=== PATIENT | female | born 1995 | race Caucasian/White ===

== ENCOUNTER 2017-12-12 22:00 | Emergency (ER) | payer OTHER ==
[2017-12-12 22:20] VITALS: BP 132/63; PULSE 79; TEMP 98.8; BMI 27.2
[2017-12-13] MEDS ORDERED: IBUPROFEN 600 MG TABLET (FP) PO ONE ×2 (00:27→00:36)
[2017-12-13] MEDS ORDERED: CEPHALEXIN MONOHYDRATE 500 MG CAPSULE (UD) PO ONE (00:37)
--- NOTE | 2017-12-13 00:37 | PDOC ---
History of Present Illness - General Chief Complaint: Pain Stated Complaint: PAIN Time Seen by Provider: 12/12/17 23:58 History Source: Patient - History of Present Illness Initial Comments: 12/13/17 00:37 22 byear old c/o left great toe pain, reports that she pulled corner of a nail noted to have increased erythema and swelling to left great toe 12/13/17 00:48 Past History - Past Medical History Allergies/Adverse Reactions: Allergies Allergy/AdvReac Type Severity Reaction Status Date / Time No Known Allergies Allergy Verified 12/12/17 22:20 Home Medications: Ambulatory Orders Cephalexin Monohydrate [Keflex -] 250 mg PO Q6H #28 capsule 12/13/17 Asthma: No Cancer: No Cardiac Disorders: No COPD: No Diabetes: No HTN: No Seizures: No Thyroid Disease: No - Immunization History Immunization Up to Date: No - Suicide/Smoking/Psychosocial Hx Smoking Status: No Smoking History: Never smoked Have you smoked in the past 12 months: No Number of Cigarettes Smoked Daily: 0 Information on smoking cessation initiated: No Hx Alcohol Use: No Drug/Substance Use Hx: No Substance Use Type: None Hx Substance Use Treatment: No *Physical Exam - Vital Signs Last Vital Signs Temp Pulse Resp BP Pulse Ox 98.8 F 79 17 132/63 100 12/12/17 22:18 12/12/17 22:18 12/12/17 22:18 12/12/17 22:18 12/12/17 22:18 - Physical Exam General Appearance: Yes: Appropriately Dressed Extremity: positive: Normal Capillary Refill, Normal Inspection, Erythema ( right great toe erythema + tenderness, scant amount of pus drained. ) Integumentary: positive: Normal Color, Dry, Warm Neurologic: positive: Fully Oriented, Alert, Normal Mood/Affect Procedures - Incision and Drainage I&D Site: Left: Paronychia, Other (great toe (left)) Betadine cleansed: Yes Progress: 12/13/17 00:49 Small amount of yellow pus drained. Medical Decision Making - Medical Decision Making 12/13/17 00:49 paronychia P: drained scant amount of pus *DC/Admit/Observation/Transfer Diagnosis at time of Disposition: Paronychia of great toe, left - Discharge Dispostion Disposition: HOME - Prescriptions Prescriptions: Cephalexin Monohydrate [Keflex -] 250 mg PO Q6H #28 capsule - Referrals - Patient Instructions Printed Discharge Instructions: DI for Wound Infection Additional Instructions: Soak foot in warm salty water Take ibuprofen every 6 hours as needed for pain Take cephalexin as prescribed Follow up with you doctor in 2 days for a wound check Return to the ER if you're noticing streaking to your toes, fever, worsening symptoms. - Post Discharge Activity Forms/Work/School Notes: Back to Work
[2017-12-13] MEDS ORDERED: CEPHALEXIN MONOHYDRATE 500 MG CAPSULE (UD) ONE (00:46)
== END 2017-12-13 01:10 | disposition home or self-care (01) ==
LOC: JER 22:00 → JERFT 22:00 → JER 12-13 01:10
PROC: 0H9RXZZ Drainage of Toe Nail, External Approach (ICD-10-PCS; principal; 2017-12-12)
DX: L03.032 Cellulitis of left toe (principal)
CPT/HCPCS: 11740; 99281-25

== ENCOUNTER 2018-03-16 19:18 | Emergency (ER) | payer OTHER ==
[2018-03-16 19:47] VITALS: BP 99/83; PULSE 115; TEMP 98.6; BMI 28.6
[2018-03-16] MEDS ORDERED: IBUPROFEN 600 MG TABLET (FP) PO ONE ×2 (20:11→20:15)
--- NOTE | 2018-03-16 20:13 | PDOC ---
History of Present Illness - General Chief Complaint: Cold Symptoms Stated Complaint: COUGH Time Seen by Provider: 03/16/18 19:44 History Source: Patient Exam Limitations: No Limitations - History of Present Illness Initial Comments: 03/16/18 20:11 23-year-old female with no past medical history except for smoking presents to ED with complaints of myalgia, rib pain dry hacking cough and runny nose for the past 6 days. Patient states this taken Mucinex and takes with minimal improvement. Patient denies recent illness recent travel recent sick contacts. Timing/Duration: reports: week Possible Cause: Yes: no prior episodes Associated Symptoms: reports: cough, muscle aches, nasal drainage Past History - Travel Traveled outside of the country in the last 30 days: No - Past Medical History Allergies/Adverse Reactions: Allergies Allergy/AdvReac Type Severity Reaction Status Date / Time No Known Allergies Allergy Verified 12/12/17 22:20 Home Medications: Ambulatory Orders Guaifenesin AC [Robitussin AC -] 5 ml PO TID PRN #60 ml MDD 15 03/16/18 Asthma: No Cancer: No Cardiac Disorders: No COPD: No Diabetes: No HTN: No Seizures: No Thyroid Disease: No - Immunization History Immunization Up to Date: No - Suicide/Smoking/Psychosocial Hx Smoking Status: No Smoking History: Current every day smoker Have you smoked in the past 12 months: Yes Number of Cigarettes Smoked Daily: 3 Information on smoking cessation initiated: No Hx Alcohol Use: No Drug/Substance Use Hx: No Substance Use Type: None Hx Substance Use Treatment: No Patient Lives Alone: No Lives with/in: spouse/SO Review of Systems - Review of Systems Able to Perform ROS?: No HEENTM: Yes: Nose Congestion Respiratory: Yes: Cough Cardiac (ROS): No: Symptoms Reported Musculoskeletal: Yes: Joint Pain (rib pain) Integumentary: No: Symptoms Reported Neurological: No: Symptoms reported Endocrine: No: Symptoms Reported Hematologic/Lymphatic: No: Symptoms Reported *Physical Exam - Vital Signs Last Vital Signs Temp Pulse Resp BP Pulse Ox 98.6 F 115 H 18 99/83 99 03/16/18 19:44 03/16/18 19:44 03/16/18 19:44 03/16/18 19:44 03/16/18 19:44 - Physical Exam General Appearance: Yes: Nourished, Appropriately Dressed. No: Apparent Distress HEENT: positive: EOMI, WALTER, TMs Normal, Pharynx Normal, Nasal Congestion, Rhinorrhea. negative: Pale Conjunctivae, Sinus Tenderness Neck: positive: Supple Respiratory/Chest: positive: Lungs Clear, Normal Breath Sounds. negative: Respiratory Distress, Accessory Muscle Use Cardiovascular: positive: Regular Rhythm, Tachycardia. negative: Murmur Gastrointestinal/Abdominal: positive: Soft. negative: Tenderness Integumentary: positive: Normal Color, Warm, Moist Neurologic: positive: Motor Strength /5 Medical Decision Making - Medical Decision Making 03/16/18 20:13 Patient with URI symptoms. Patient slightly tachycardic complaining of myalgia. Patient ordered for Motrin and influenza. *DC/Admit/Observation/Transfer Diagnosis at time of Disposition: Cough - Discharge Dispostion Disposition: HOME Condition at time of disposition: Improved - Prescriptions Prescriptions: Guaifenesin AC [Robitussin AC -] 5 ml PO TID PRN #60 ml MDD 15 PRN Reason: Cough - Referrals - Patient Instructions Printed Discharge Instructions: DI for Viral Upper Respiratory Infection -- Adult Additional Instructions: Drink plenty of fluids and take Robitussin-AC as needed for discomfort but do not operate any heavy machinery taking it - Post Discharge Activity Forms/Work/School Notes: Back to Work
[2018-03-16] MEDS ORDERED: guaiFENesin/CODEINE 5 ML UNIT-DOSE CUPS PO ONE ×4 (20:40→20:59)
== END 2018-03-16 21:28 | disposition home or self-care (01) ==
LOC: JERFT 19:18
DX: J06.9 Acute upper respiratory infection, unspecified (principal); B97.89 Other viral agents as the cause of diseases classified elsewhere
CPT/HCPCS: 87804; 99281-25

== ENCOUNTER 2019-02-01 07:17 | Emergency (ER) | payer OTHER ==
[2019-02-01 07:39] VITALS: BMI 29.2
[2019-02-01] MEDS ORDERED: ACETAMINOPHEN 1000 MG/100 ML VIAL (NON FORMULARY) IVPB ONE (07:56)
[2019-02-01] MEDS ORDERED: ONDANSETRON 4 MG/2 ML VIAL IVPUSH ONE (07:56)
[2019-02-01] MEDS ORDERED: FAMOTIDINE 20 MG/50 ML IVPB 20 MG/50 ML MG IVPB ONE ×2 (07:56→07:59)
[2019-02-01] MEDS ORDERED: ACETAMINOPHEN INJECTION 100 ML IVPB ONE (07:59)
[2019-02-01] MEDS ORDERED: ONDANSETRON 4 MG/2 ML VIAL ONE (07:59)
[2019-02-01] MEDS ORDERED: SODIUM CHLORIDE 0.9% 1000 ML INFUS.BAG IV ONE ×2 (08:22→10:11)
--- NOTE | 2019-02-01 08:22 | PDOC ---
History of Present Illness - General Chief Complaint: Vomiting/Diarrhea Stated Complaint: VOMITING,DIARRHEA Time Seen by Provider: 02/01/19 07:37 - History of Present Illness Initial Comments: 02/01/19 11:54 23 years old with no significant past medical history presents to the emergency department with a history of nausea vomiting diarrhea greater than 10 episodes of nonbilious nonbloody emesis. Patient states she thinks she ate some bad [place] food After having multiple episodes of emesis patient began to develop some intermittent epigastric discomfort which comes and goes No travel no sick contacts no blood in emesis or diarrhea. Pain is intermittent moderate to severe in nature and nonradiating located in the epigastrium. Past History - Past Medical History Allergies/Adverse Reactions: Allergies Allergy/AdvReac Type Severity Reaction Status Date / Time No Known Allergies Allergy Verified 02/01/19 07:30 Home Medications: Ambulatory Orders Esomeprazole Magnesium [Nexium] 2.5 mg PO DAILY 02/01/19 Asthma: No Cancer: No Cardiac Disorders: No COPD: No Diabetes: No HTN: No Seizures: No Thyroid Disease: No - Immunization History Immunization Up to Date: No - Suicide/Smoking/Psychosocial Hx Smoking Status: No Smoking History: Current every day smoker Have you smoked in the past 12 months: Yes Number of Cigarettes Smoked Daily: 3 Information on smoking cessation initiated: No Hx Alcohol Use: No Drug/Substance Use Hx: No Substance Use Type: None Hx Substance Use Treatment: No Review of Systems - Review of Systems Comments:: 02/01/19 11:54 ROS: A complete review of 10 out of 10 review of systems is taken and is negative apart from what is previously mentioned below and in the HPI. *Physical Exam - Vital Signs Last Vital Signs Temp Pulse Resp BP Pulse Ox 98.5 F 117 H 18 102/72 99 02/01/19 07:31 02/01/19 07:31 02/01/19 07:31 02/01/19 07:31 02/01/19 07:51 - Physical Exam Comments: 02/01/19 11:55 Vitals: Triage Vital signs reviewed General Appearance: no acute distress, well nourished well developed, Head: Atraumatic, Neck: Supple;No Nucal rigidity Chest Wall: Nontender Cardiac: Regular rate and rhythym, no murmurs, no rubs, no gallops, Lungs: Clear to auscultation bilateral, good air movement bilaterally, Abdomen: Soft, non distended, normal bowel sounds, mild epigastric tenderness palpation, no rebound no guarding. Extremities: Full range of motion to all extremities, no cyanosis, clubbing, or edema Skin: Warm and dry, no rashes or lesions, no rash, no petechiae Psych: normal mood, normal affect ED Treatment Course - LABORATORY CBC & Chemistry Diagram: 02/01/19 08:10 02/01/19 08:10 - Medications Given in the ED: ED Medications Discontinued Medications Generic Name Dose Route Start Last Admin Trade Name Yvette PRN Reason Stop Dose Admin Acetaminophen 1,000 mg 02/01/19 07:56 02/01/19 08:19 Ofirmev Injection - IVPB 02/01/19 07:57 1,000 mg ONCE ONE Administration Ondansetron HCl 8 mg 02/01/19 07:56 02/01/19 08:19 Zofran Injection IVPUSH 02/01/19 07:57 8 mg ONCE ONE Administration Medical Decision Making - Medical Decision Making 02/01/19 11:56 23 years old with nausea vomiting diarrhea follow-up abdominal discomfort differential diagnosis includes food borne illness versus viral illness less likely acute surgical process very minimal epigastric tenderness on examination will hydrate check labs and reassess Reevaluation after IV fluids and antiemetics patient feels much better now tolerating fluids for abdominal/epigastric discomfort is completely resolved her laboratory analysis was unremarkable except for very slightly elevated white blood cell count which is most likely reactive or viral in nature We'll discharge home with prescription for Zofran Findings, need follow-up and strict return instructions discussed with patient. *DC/Admit/Observation/Transfer Diagnosis at time of Disposition: Gastroenteritis - Discharge Dispostion Disposition: HOME Decision to Admit order: No - Referrals - Patient Instructions Printed Discharge Instructions: Viral Gastroenteritis Additional Instructions: For the next 24 hours fluids only. Take Zofran antinausea medication as prescribed. Turn to the emergency department for any severe abdominal pain inability to tolerate fluids or for any concerns. Follow-up with your doctor within the next 1 week. - Post Discharge Activity Forms/Work/School Notes: Back to Work
[2019-02-01 08:42] LABS: BASO % 0.2 % (0-2.0); EOS % 0.2 % (0-4.5); HEMATOCRIT 39.1 % (32.4-45.2); HEMOGLOBIN 13.7 GM/dL (10.7-15.3); LYMPH % 5.5 % (8-40); MCH 30.9 pg (25.7-33.7); MCHC 34.9 g/dl (32.0-36.0); MEAN CELL VOLUME 88.6 fl (80-96); MONO % 8.4 % (3.8-10.2); NEUT % 85.7 % (42.8-82.8); PLATELET COUNT 193 K/MM3 (134-434); RBC 4.42 M/mm3 (3.60-5.2); WHITE BLOOD COUNT 11.7 K/mm3 (4.0-10.0)
[2019-02-01 08:46] LABS: EPI CELLS 11.4 /HPF (0-5/HPF); HYALINE CASTS 9 /lpf (0-8); URINE APPEARANCE CLOUDY; URINE BACTERIA 328.2 /hpf (NEGATIVE); URINE BILIRUBIN NEGATIVE (NEGATIVE); URINE COLOR YELLOW; URINE GLUCOSE (UA) NEGATIVE (NEGATIVE); URINE KETONE NEGATIVE (NEGATIVE); URINE LEUK ESTERASE TRACE (NEGATIVE); URINE NITRITE NEGATIVE (NEGATIVE); URINE PROTEIN NEGATIVE (NEGATIVE); URINE RBC 3 /hpf (0-4); URINE UROBILINOGEN 0.2 mg/dL (0.2-1.0); URINE WBC 5 /hpf (0-5)
[2019-02-01 09:08] LABS: ALBUMIN 3.8 g/dl (3.4-5.0); BILIRUBIN,TOTAL 0.5 mg/dL (0.2-1); BLOOD UREA NITROGEN 11.6 mg/dL (7-18); CALCIUM 8.8 mg/dL (8.5-10.1); CREATININE 0.6 mg/dL (0.55-1.3); POTASSIUM 3.9 mmol/L (3.5-5.1); TOT PROT 7.4 g/dl (6.4-8.2)
[2019-02-01] MEDS ORDERED: METOCLOPRAMIDE HCL INJECTION 10 MG/2 ML VIAL IVPB ONE (10:10)
[2019-02-01] MEDS ORDERED: METOCLOPRAMIDE HCL INJECTION 10 MG/2 ML VIAL ONE (10:13)
[2019-02-01 11:23] VITALS: BP 107/58; PULSE 100; TEMP 98.1
== END 2019-02-01 12:13 | disposition home or self-care (01) ==
LOC: JER 07:17
PROC: 3E033GC Introduction of Other Therapeutic Substance into Peripheral Vein, Percutaneous Approach (ICD-10-PCS; principal; 2019-02-01)
PROC: 3E033GC Introduction of Other Therapeutic Substance into Peripheral Vein, Percutaneous Approach (ICD-10-PCS; 2019-02-01)
PROC: 3E033NZ Introduction of Analgesics, Hypnotics, Sedatives into Peripheral Vein, Percutaneous Approach (ICD-10-PCS; 2019-02-01)
PROC: 3E033GC Introduction of Other Therapeutic Substance into Peripheral Vein, Percutaneous Approach (ICD-10-PCS; 2019-02-01)
PROC: 3E0337Z Introduction of Electrolytic and Water Balance Substance into Peripheral Vein, Percutaneous Approach (ICD-10-PCS; 2019-02-01)
DX: K52.9 Noninfective gastroenteritis and colitis, unspecified (principal)
CPT/HCPCS: 36415; 80053; 81003; 83690; 84703; 85025; 87086; 99284-25; J0131; J7030

== ENCOUNTER 2019-05-14 15:44 | Emergency (ER) | payer OTHER ==
[2019-05-14 16:00] VITALS: BP 104/72; PULSE 122; TEMP 98.1; BMI 28.3
--- NOTE | 2019-05-14 16:03 | PDOC ---
Rapid Medical Evaluation Time Seen by Provider: 05/14/19 15:59 Medical Evaluation: Allergies Allergy/AdvReac Type Severity Reaction Status Date / Time No Known Allergies Allergy Verified 02/01/19 07:30 05/14/19 15:59 Pt presents for evaluation of LLQ pain for two weeks. Pt states that the pain comes and goes, but the pain ramped up yesterday. Denies fevers, chills, urinary symptoms, n/v/d. LMP 2 weeks ago Exam: TTP LLQ Orders: labs, urine Pt to proceed to the ER for further evaluation Discharge Disposition - Diagnosis Abdominal pain Qualifiers: Abdominal location: left lower quadrant Qualified Code(s): R10.32 - Left lower quadrant pain - Referrals - Patient Instructions - Post Discharge Activity
== END 2019-05-14 16:38 | disposition left against medical advice (07) ==
LOC: JER 15:44
DX: R10.32 Left lower quadrant pain (principal)
CPT/HCPCS: 99281-25

== ENCOUNTER 2019-05-14 18:18 | Emergency (ER) | payer OTHER ==
[2019-05-14 18:52] VITALS: TEMP 98.5; BMI 66.7
--- NOTE | 2019-05-14 19:13 | PDOC ---
Attending Attestation - Resident Resident Name: Hayden Mcfarland - ED Attending Attestation I have performed the following: I have examined & evaluated the patient, The case was reviewed & discussed with the resident, I agree w/resident's findings & plan - HPI HPI: 05/14/19 19:55 see resident hpi - Physicial Exam PE: 05/14/19 19:55 agree with resident exam - Medical Decision Making 05/14/19 19:56 24-year-old female with complaints of left-sided pelvic pain as well as nonacute intermittent chest pain Plan for ultrasound of the pelvis to rule out torsion versus ectopic In regards to chest pain plan for cardiac enzymes, d-dimer EKG on arrival at approximately 4 PM was a sinus tachycardia Will CTA versus chest x-ray pending results
--- NOTE | 2019-05-14 19:45 | PDOC ---
History of Present Illness - General Chief Complaint: Pain Stated Complaint: ABDOMINAL PAIN Time Seen by Provider: 05/14/19 18:52 - History of Present Illness Initial Comments: 05/14/19 19:45 24F with no pmh presenting with LLQ pelvic pain since this morning. Pain is on/ off but 04/12 when is happens. Doesn't radiate anywhere, patient tearful. Also complains since Tuesday of substernal chest pain, worse upon inspiration. No fever, chills, nausea, vomiting, dysuria or vaginal discharge. No recent surgery, no recent travel, not on any control. LMP: 2 weeks ago. Unknown if she's of not. Past History - Past Medical History Allergies/Adverse Reactions: Allergies Allergy/AdvReac Type Severity Reaction Status Date / Time No Known Allergies Allergy Verified 05/14/19 16:01 Asthma: No Cancer: No Cardiac Disorders: No COPD: No Diabetes: No HTN: No Seizures: No Thyroid Disease: No - Immunization History Immunization Up to Date: No - Psycho Social/Smoking Cessation Hx Smoking Status: No Smoking History: Current every day smoker Have you smoked in the past 12 months: Yes Number of Cigarettes Smoked Daily: 4 Information on smoking cessation initiated: No Hx Alcohol Use: Yes (occassional) Drug/Substance Use Hx: Yes ([place] daily) Substance Use Type: None Hx Substance Use Treatment: No Review of Systems - Review of Systems Able to Perform ROS?: Yes Is the patient limited [place] proficient: No Constitutional: No: Symptoms Reported HEENTM: No: Symptoms Reported Respiratory: No: Symptoms reported Cardiac (ROS): Yes: See HPI ABD/GI: No: Symptoms Reported : Yes: See HPI Musculoskeletal: No: Symptoms Reported Integumentary: No: Symptoms Reported Neurological: No: Symptoms reported All Other Systems: Reviewed and Negative *Physical Exam - Vital Signs Last Vital Signs Temp Pulse Resp BP Pulse Ox 98.5 F 121 H 18 108/82 100 05/14/19 18:20 05/14/19 18:20 05/14/19 18:20 05/14/19 18:20 05/14/19 18:20 - Physical Exam General Appearance: Yes: Nourished, Appropriately Dressed. No: Apparent Distress HEENT: positive: EOMI, WALTER, Normal ENT Inspection Respiratory/Chest: positive: Lungs Clear, Normal Breath Sounds. negative: Chest Tender, Respiratory Distress Cardiovascular: positive: Tachycardia Female Pelvic Exam: positive: normal external exam, cervical os closed, discharge (white), adnexal tenderness (Left side) Gastrointestinal/Abdominal: positive: Normal Bowel Sounds, Flat, Soft. negative : Tender Musculoskeletal: positive: Normal Inspection. negative: CVA Tenderness Extremity: positive: Normal Capillary Refill, Normal Inspection, Normal Range of Motion Integumentary: positive: Normal Color, Dry, Warm Neurologic: positive: Fully Oriented, Alert, Normal Response. negative: Normal Mood/Affect (tearful) ED Treatment Course - LABORATORY CBC & Chemistry Diagram: 05/14/19 20:59 05/14/19 20:59 Medical Decision Making - Medical Decision Making 05/14/19 20:09 24F with no pmh presenting with LLQ pelvic pain since this morning. Pain is on/ off but 10/10 when is happens. Doesn't radiate anywhere, patient tearful. Also complains since Tuesday of substernal chest pain, worse upon inspiration. Ovarian torsion vs ectopic vs TOA Pelvic exams concerning as patient is tender in the left adnexa. Will get UA, basic labs test and send to [facility]. 05/14/19 23:53 [facility]: negative for ectopic preg and ovarian torsion. Elevated D-diner. CTA chest and ct abdomen/pelvis w/contrast pending. Patient signed out to Dr. Roque Discharge - Discharge Information Problems reviewed: Yes Clinical Impression/Diagnosis: Abdominal pain - Follow up/Referral Referrals: Colby Billingsley [Primary Care Provider] - - Patient Discharge Instructions - Post Discharge Activity
[2019-05-14] MEDS ORDERED: morphine CARPU-JECT 4 MG/1 ML DISP.SYRIN IVPUSH ONE (19:50)
[2019-05-14] MEDS ORDERED: morphine SULFATE 4 MG/ML VIAL ONE (19:55)
[2019-05-14 20:20] LABS: URINE APPEARANCE CLEAR; URINE BILIRUBIN NEGATIVE (NEGATIVE); URINE COLOR YELLOW; URINE GLUCOSE (UA) NEGATIVE (NEGATIVE); URINE KETONE NEGATIVE (NEGATIVE); URINE LEUK ESTERASE NEGATIVE (NEGATIVE); URINE NITRITE NEGATIVE (NEGATIVE); URINE PROTEIN NEGATIVE (NEGATIVE)
[2019-05-14 21:12] LABS: BASO % 0.4 % (0-2.0); EOS % 0.5 % (0-4.5); HEMATOCRIT 38.7 % (32.4-45.2); HEMOGLOBIN 13.2 GM/dL (10.7-15.3); LYMPH % 15.8 % (8-40); MCH 30.5 pg (25.7-33.7); MCHC 34.2 g/dl (32.0-36.0); MEAN CELL VOLUME 89.3 fl (80-96); MEAN PLT VOLUME 8.6 fl (7.5-11.1); MONO % 10.5 % (3.8-10.2); NEUT % 72.8 % (42.8-82.8); PLATELET COUNT 172 K/MM3 (134-434); RBC 4.34 M/mm3 (3.60-5.2); WHITE BLOOD COUNT 8.2 K/mm3 (4.0-10.0)
[2019-05-14 21:28] LABS: INR 1.11 (0.83-1.09); PROTHROMBIN TIME (PATIENT) 13.1 SEC (9.7-13.0)
[2019-05-14 21:41] LABS: ALBUMIN 4.1 g/dl (3.4-5.0); ALK PHOS 125 U/L (45-117); ANION GAP 6 MMOL/L (8-16); BILIRUBIN,TOTAL 0.3 mg/dL (0.2-1); BLOOD UREA NITROGEN 5.6 mg/dL (7-18); CALCIUM 8.8 mg/dL (8.5-10.1); CHLORIDE 104 mmol/L (98-107); CO2 26 mmol/L (21-32); CREATININE 0.6 mg/dL (0.55-1.3); GLUCOSE,RANDOM 80 mg/dL (74-106); POTASSIUM 3.7 mmol/L (3.5-5.1); SGOT/AST 65 U/L (15-37); SGPT/ALT 87 U/L (13-61); SODIUM 136 mmol/L (136-145); TOT PROT 7.7 g/dl (6.4-8.2)
--- NOTE | 2019-05-15 00:06 | PDOC ---
*Physical Exam - Vital Signs Last Vital Signs Temp Pulse Resp BP Pulse Ox 98.5 F 117 H 20 128/68 97 05/14/19 18:20 05/14/19 20:13 05/14/19 20:13 05/14/19 20:13 05/14/19 20:13 ED Treatment Course - LABORATORY CBC & Chemistry Diagram: 05/14/19 20:59 05/14/19 20:59 - ADDITIONAL ORDERS Additional order review: Laboratory Results 05/14/19 05/14/19 05/14/19 20:59 20:59 20:59 PT with INR 13.10 H INR 1.11 H PTT (Actin FS) D-Dimer Sodium Potassium Chloride Carbon Dioxide Anion Gap BUN Creatinine Est GFR (CKD-EPI)AfAm Est GFR (CKD-EPI)NonAf Random Glucose Calcium Total Bilirubin AST ALT Alkaline Phosphatase Troponin I < 0.02 Total Protein Albumin Beta HCG, Quant Urine Color Urine Appearance Urine pH Ur Specific [place] Urine Protein Urine Glucose (UA) Urine Ketones Urine Blood Urine Nitrite Urine Bilirubin Urine Urobilinogen Ur Leukocyte Esterase Urine HCG, Qual Blood Type O POSITIVE Antibody Screen Negative 05/14/19 05/14/19 05/14/19 20:59 20:59 20:59 PT with INR INR PTT (Actin FS) 28.0 D-Dimer 707 H Sodium 136 Potassium 3.7 Chloride 104 Carbon Dioxide 26 Anion Gap 6 L BUN 5.6 L Creatinine 0.6 Est GFR (CKD-EPI)AfAm 145.80 Est GFR (CKD-EPI)NonAf 125.80 Random Glucose 80 Calcium 8.8 Total Bilirubin 0.3 AST 65 H ALT 87 H Alkaline Phosphatase 125 H Troponin I Total Protein 7.7 Albumin 4.1 Beta HCG, Quant < 1.0 Urine Color Urine Appearance Urine pH Ur Specific [place] Urine Protein Urine Glucose (UA) Urine Ketones Urine Blood Urine Nitrite Urine Bilirubin Urine Urobilinogen Ur Leukocyte Esterase Urine HCG, Qual Blood Type Antibody Screen 05/14/19 05/14/19 19:51 19:51 PT with INR INR PTT (Actin FS) D-Dimer Sodium Potassium Chloride Carbon Dioxide Anion Gap BUN Creatinine Est GFR (CKD-EPI)AfAm Est GFR (CKD-EPI)NonAf Random Glucose Calcium Total Bilirubin AST ALT Alkaline Phosphatase Troponin I Total Protein Albumin Beta HCG, Quant Urine Color Yellow Urine Appearance Clear Urine pH 8.0 D Ur Specific [place] 1.014 Urine Protein Negative Urine Glucose (UA) Negative Urine Ketones Negative Urine Blood Negative Urine Nitrite Negative Urine Bilirubin Negative Urine Urobilinogen 1.0 Ur Leukocyte Esterase Negative Urine HCG, Qual Negative Blood Type Antibody Screen 05/14/19 20:59 RBC 4.34 MCV 89.3 MCHC 34.2 RDW 13.0 MPV 8.6 Neutrophils % 72.8 Lymphocytes % 15.8 D Monocytes % 10.5 H Eosinophils % 0.5 D Basophils % 0.4 - Medications Given in the ED: ED Medications Discontinued Medications Generic Name Dose Route Start Last Admin Trade Name Yvette PRN Reason Stop Dose Admin Morphine Sulfate 4 mg 05/14/19 19:50 05/14/19 21:06 Morphine Injection - IVPUSH 05/14/19 19:51 4 mg ONCE ONE Administration Medical Decision Making - Medical Decision Making Pt was signed out to me by resident Dr. Mcfarland, who explained the presentation, ED course, any pending results, and needed interventions. Pending results include CTA and CT abd/pelvis with IV contrast. Pt is currently stable and is lying comfortably. 05/15/19 00:[address] abd/pelvis without acute pathology. Mild free fluid in the cul-[place]- sac. -- possibly ruptured ovarian cyst? H/H stable Pt can be d/c to home with PCP f/u. Strict return precautions provided with pt understanding. 05/15/19 01:02 Discharge - Discharge Information Problems reviewed: Yes Clinical Impression/Diagnosis: Pelvic pain Abdominal pain Qualifiers: Abdominal location: lower abdomen, unspecified Qualified Code(s): R10.30 - Lower abdominal pain, unspecified Condition: Stable Disposition: HOME - Admission No - Follow up/Referral Referrals: Colby Billingsley [Primary Care Provider] - Essie Fields MD [Staff Physician] - - Patient Discharge Instructions Patient Printed Discharge Instructions: DI for Pelvic Pain Additional Instructions: You were seen in the ER today for pelvic and abdominal pain. The results of your labs and imaging today were normal. Please follow-up with your primary care doctor and [facility] within 1-2 days to discuss your visit and make sure your symptoms have improved. Please return to the ER if you have any worsening pain, development of fevers or chills, loss of consciousness, inability to tolerate food or fluids, or any other concerns. You can take tylenol or motrin every 4-6 hours as needed for pain. - Post Discharge Activity
[2019-05-15 01:27] VITALS: BP 122/66; PULSE 87
--- NOTE | 2019-05-15 09:52 | EKG ---
Test Reason : Blood Pressure : / mmHG Vent. Rate : 117 BPM Atrial Rate : 117 BPM P-R Int : 132 ms QRS Dur : 082 ms QT Int : 322 ms P-R-T Axes : 046 066 036 degrees QTc Int : 449 ms SINUS TACHYCARDIA OTHERWISE NORMAL ECG WHEN COMPARED WITH ECG OF 14-MAY-2019 16:06, NO SIGNIFICANT CHANGE WAS FOUND Confirmed by MD ELIEZER, DALLAS ([id number]) on 05/15/2019 9:52:06 AM Referred By: Confirmed By:DALLAS MARTINS MD
== END 2019-05-15 01:29 | disposition home or self-care (01) ==
LOC: JER 18:18
PROC: 3E033NZ Introduction of Analgesics, Hypnotics, Sedatives into Peripheral Vein, Percutaneous Approach (ICD-10-PCS; principal; 2019-05-14)
DX: R10.2 Pelvic and perineal pain (principal); R74.8 Abnormal levels of other serum enzymes; F17.210 Nicotine dependence, cigarettes, uncomplicated
CPT/HCPCS: 36415; 71046-TC-FY; 71275-TC; 74177-TC; 76830-TC; 80053; 81003; 84484; 84702; 84703; 85025; 85379; 85610; 85730; 86850; 86900; 86901; 87086; 93005; 93010; 96374; 99284-25

== ENCOUNTER 2022-06-05 22:11 | Emergency (ER) | payer OTHER ==
[2022-06-05 22:18] VITALS: BMI 26.4
[2022-06-05] MEDS ORDERED: ACETAMINOPHEN 1000 MG/100 ML BAG IVPB ONE (22:39)
[2022-06-06] MEDS ORDERED: ACETAMINOPHEN INJECTION 100 ML IVPB ONE (00:10)
[2022-06-06 00:36] LABS: BASO % 0.4 % (0-2.0); EOS % 0.9 % (0-4.5); HEMATOCRIT 37.1 % (32.4-45.2); HEMOGLOBIN 12.9 GM/dL (10.7-15.3); LYMPH % 22.4 % (8-40); MCH 30.6 pg (25.7-33.7); MCHC 34.8 g/dl (32.0-36.0); MEAN CELL VOLUME 87.9 fl (80-96); MEAN PLT VOLUME 7.7 fl (7.5-11.1); MONO % 5.5 % (3.8-10.2); NEUT % 70.8 % (42.8-82.8); PLATELET COUNT 231 10^3/uL (134-434); RBC 4.22 M/mm3 (3.60-5.2); RDW 12.5 % (11.6-15.6); WHITE BLOOD COUNT 7.4 K/mm3 (4.0-10.0)
[2022-06-06 00:44] LABS: INR 1.09 (0.83-1.09); PROTHROMBIN TIME (PATIENT) 12.5 SEC (9.7-13.0)
[2022-06-06 00:46] LABS: ACTIVATED PTT 36.5 SECONDS (25.2-36.5)
[2022-06-06 01:05] LABS: CALCIUM 8.5 mg/dL (8.5-10.1)
[2022-06-06 01:06] LABS: ALBUMIN 3.7 g/dl (3.4-5.0); BLOOD UREA NITROGEN 7.6 mg/dL (7-18)
[2022-06-06 01:09] LABS: CREATININE 0.9 mg/dL (0.55-1.3)
[2022-06-06 01:11] LABS: BILIRUBIN,TOTAL 0.2 mg/dL (0.2-1); TOT PROT 7.3 g/dl (6.4-8.2)
[2022-06-06] MEDS ORDERED: morphine SULFATE 4 MG/ML VIAL IVPUSH ONE (01:29)
[2022-06-06 03:09] VITALS: TEMP 98.6
[2022-06-06 04:10] LABS: PH,URINE 6.5 (5.0-8.0); URINE APPEARANCE CLEAR; URINE BILIRUBIN NEGATIVE (NEGATIVE); URINE COLOR YELLOW; URINE GLUCOSE (UA) NEGATIVE (NEGATIVE); URINE KETONE TRACE (NEGATIVE); URINE LEUK ESTERASE NEGATIVE (NEGATIVE); URINE NITRITE NEGATIVE (NEGATIVE); URINE PROTEIN NEGATIVE (NEGATIVE)
[2022-06-06] MEDS ORDERED: ACETAMINOPHEN 325 MG TABLET (FP) PO ONE (05:44)
[2022-06-06 05:45] VITALS: BP 93/53; PULSE 85; RESP 20
[2022-06-06] MEDS ORDERED: ACETAMINOPHEN 325 MG TABLET (FP) ONE (05:48)
== END 2022-06-06 05:47 | disposition home or self-care (01) ==
LOC: JER 22:11
PROC: 3E033GC Introduction of Other Therapeutic Substance into Peripheral Vein, Percutaneous Approach (ICD-10-PCS; principal; 2022-06-05)
DX: O26.891 Other specified pregnancy related conditions, first trimester (principal); R10.30 Lower abdominal pain, unspecified; Z3A.01 Less than 8 weeks gestation of pregnancy
CPT/HCPCS: 36415; 76817-TC; 80053; 81003; 84702; 84703; 85025; 85610; 85730; 86850; 86900; 86901; 87086; 99284-25

== ENCOUNTER 2024-07-16 09:31 | Emergency (ER) | payer OTHER ==
[2024-07-16 09:56] VITALS: RESP 20; TEMP 98.4; BMI 27.2
[2024-07-16] MEDS ORDERED: ACETAMINOPHEN 500 MG TABLET (FP) ONE (12:08)
[2024-07-16] MEDS: ACETAMINOPHEN 500 MG TABLET (FP) PO ONE (12:13)
[2024-07-16 12:23] LABS: URINE APPEARANCE CLEAR; URINE BILIRUBIN NEGATIVE (NEGATIVE); URINE COLOR YELLOW; URINE GLUCOSE (UA) NEGATIVE (NEGATIVE); URINE KETONE NEGATIVE (NEGATIVE); URINE LEUK ESTERASE NEGATIVE (NEGATIVE); URINE NITRITE NEGATIVE (NEGATIVE); URINE PROTEIN NEGATIVE (NEGATIVE); URINE UROBILINOGEN 0.2 mg/dL (0.2-1.0)
[2024-07-16 12:26] LABS: HCG,QUALITATIVE URINE Negative
[2024-07-16 13:59] VITALS: BP 110/75; PULSE 98
== END 2024-07-16 13:59 | disposition home or self-care (01) ==
LOC: JERFT 09:31
DX: J40 Bronchitis, not specified as acute or chronic (principal); R05.9 Cough, unspecified; R09.81 Nasal congestion; R35.0 Frequency of micturition; R10.30 Lower abdominal pain, unspecified; Z20.822 Contact with and (suspected) exposure to COVID-19
CPT/HCPCS: 0241U-QW; 71046-TC-FY; 81003; 84703; 87086; 87651; 99284-25

== ENCOUNTER 2025-01-29 22:24 | Emergency (ER) | payer OTHER ==
[2025-01-29 22:38] VITALS: BP 108/63; PULSE 78; RESP 19; TEMP 99.3; BMI 27.2
[2025-01-29 23:55] LABS: ABSOLUTE IMMATURE GRANULOCYTES 0.02 x10^3/uL (0.0-0.031); BASOPHILS # 0.03 x10^3/uL (0.01-0.08); EOSINOPHIL % 0.4 % (0.7-5.8); EOSINOPHILS # 0.03 x10^3/uL (0.04-0.36); MCHC 34.4 g/dl (32.2-35.5); MEAN CELL VOLUME 88.4 fl (79.4-94.8); MEAN PLT VOLUME 9.7 fl (9.4-12.3); MONOCYTE # 0.70 x10^3/uL (0.24-0.86); MONOCYTE % 9.0 % (4.7-12.5); RDW 11.9 % (12.1-16.8)
[2025-01-30 00:24] LABS: CO2 28.0 mmol/L (21-32); GLUCOSE,RANDOM 102.0 mg/dL (74-106)
[2025-01-30 00:27] LABS: CREATININE 0.7 mg/dL (0.55-1.3); SGOT/AST 23.0 U/L (15-37); SGPT/ALT 30.0 U/L (13-61)
[2025-01-30 00:28] LABS: TOT PROT 7.1 g/dl (6.4-8.2)
[2025-01-30] MEDS ORDERED: ONDANSETRON 4 MG/2 ML VIAL ONE (00:28)
[2025-01-30] MEDS ORDERED: FAMOTIDINE 20 MG/50 ML IVPB 20 MG/50 ML MG IVPB ONE (00:28)
[2025-01-30 00:30] LABS: ALK PHOS 88.0 U/L (45-117)
[2025-01-30] MEDS: LACTATED RINGERS SOLUTION 1000 ML INFUS.BAG IV ONE (00:42)
[2025-01-30] MEDS: ONDANSETRON 4 MG/2 ML VIAL IVPUSH ONE (00:43)
[2025-01-30] MEDS: FAMOTIDINE 20 MG/50 ML IVPB 20 MG/50 ML MG IVPB ONE (00:43)
[2025-01-30] MEDS ORDERED: ACETAMINOPHEN 325 MG TABLET (FP) ONE (00:56)
[2025-01-30] MEDS: ACETAMINOPHEN 325 MG TABLET (FP) PO ONE (00:57)
[2025-01-30 13:07] LABS: HIV INTERPRETATION NEGATIVE (NEGATIVE)
[2025-01-30 13:13] LABS: HCV DIAGNOSTIC IN-HOUSE W/RFLX NON-REACTIVE (NONREACTIVE)
== END 2025-01-30 01:38 | disposition home or self-care (01) ==
LOC: JER 22:24
PROC: 3E033GC Introduction of Other Therapeutic Substance into Peripheral Vein, Percutaneous Approach (ICD-10-PCS; principal; 2025-01-30)
PROC: 3E033GC Introduction of Other Therapeutic Substance into Peripheral Vein, Percutaneous Approach (ICD-10-PCS; 2025-01-30)
DX: M79.605 Pain in left leg (principal); R11.10 Vomiting, unspecified; R19.7 Diarrhea, unspecified; R10.84 Generalized abdominal pain
CPT/HCPCS: 36415; 80053; 83690; 84703; 85025; 86803; 87389; 93971-TC-RT; 96365; 96375; 99285-25